=== PATIENT | male | born 1995 | race Caucasian/White ===

== ENCOUNTER 2021-09-04 13:11 | Emergency (ER) | payer OTHER ==
[~2021-09-04] VITALS: Ht 180.3 cm; Wt 90.7 kg
[2021-09-04 13:12] VITALS: BP 119/72
[2021-09-04] MEDS ORDERED: DOXYCYCLINE 10100 MG PO (13:58)
[2021-09-04] MEDS ORDERED: NAPROSYN500 MG PO (13:58)
== END 2021-09-04 14:37 | disposition home or self-care (01) ==
LOC: ER 13:11
DX: L02.415 Cutaneous abscess of right lower limb (principal)